=== PATIENT | female | born 1960 | race Caucasian/White ===

== ENCOUNTER → 2018-07-01 | Outpatient (CLI) | payer OTHER | LOC: M.RAD 06-24 10:10 | DX: Z12.31 Encounter for screening mammogram for malignant neoplasm of breast (principal) ==

== ENCOUNTER → 2019-06-23 | Outpatient (CLI) | payer OTHER | LOC: M.RAD 08:45 | DX: Z12.31 Encounter for screening mammogram for malignant neoplasm of breast (principal) ==

== ENCOUNTER → 2019-06-30 | Outpatient (CLI) | payer OTHER | LOC: M.ULTRA 12:55 | DX: N63.12 Unspecified lump in the right breast, upper inner quadrant (principal); N63.22 Unspecified lump in the left breast, upper inner quadrant ==

== ENCOUNTER → 2019-07-08 | Outpatient (CLI) | payer OTHER ==
--- NOTE | 2019-07-12 17:06 | PATH ---
[address] [address] PATHOLOGY RPT PROCEDURE Name: ASHVIN HOWELL Room: [facility]#: [id number] Admission: 07/08/19 Date of : 58 Discharge: Report #: [id number] Path Case #: [id number] Note [facility] Accession Number: [id number] TESTS RESULT FLAG UNITS REF RANGE LAB Clinician Provided Cytology Information No. of containers..01 Other (Miscellaneous) Source: LT BREAST ASPIRATION DIAGNOSIS: LT BREAST ASPIRATION, 1200, 5 CM FROM NIPPLE: BENIGN CYST WITH APOCRINE CHANGES. SEE COMMENT. COMMENT: REVIEWED WITH DR. CASSI STALLWORTH, WHO AGREES WITH THE DIAGNOSIS. Pathologist ICD10: 02 R89.6 Signed out by: 02 Benjamín Monge MD, Pathologist NPI- [id number] Performed by: Ashanti Desai, Survey Analyst ([facility]) Gross description: 01 2ML, RED, CLOUDY /LCS 08/17/1840 0000 Local FLAG LEGEND: L-Low Normal,H-High Normal,LL-Alert Low,HH-Alert High <-Panic Low,>-Panic High,A-Abnormal,AA-Critical Abnormal Performed at: [address] [place] [address] Oliverio De La Cruz MD, [address] [place] [address] [address] [place] [address] Benjamín Monge MD, Specimen Comment: A courtesy copy of this report has been sent to [phone], [phone] Specimen Comment: [id number] Specimen Comment: Report sent to / DR SANTANA Performed at: [address], [place], [place] [id number] MD Oliverio De La Cruz MD Phone: [phone]
== END | disposition home or self-care (01) ==
LOC: M.ULTRA 08:14
DX: N60.02 Solitary cyst of left breast (principal); N60.82 Other benign mammary dysplasias of left breast

== ENCOUNTER → 2020-05-29 | Outpatient (CLI) | payer OTHER | LOC: M.RAD 10:10 | PROVIDERS: ATTEND Family Medicine | DX: Z12.31 Encounter for screening mammogram for malignant neoplasm of breast (principal) ==

== ENCOUNTER → 2020-10-24 | Outpatient (CLI) | payer OTHER | LOC: M.LAB 08:44 | PROVIDERS: ATTEND Orthopaedic Surgery | DX: Z01.812 Encounter for preprocedural laboratory examination (principal); Z20.822 Contact with and (suspected) exposure to COVID-19 ==

== ENCOUNTER → 2021-06-06 | Outpatient (CLI) | payer OTHER | LOC: M.RAD 09:26 | PROVIDERS: ATTEND Family Medicine | DX: Z12.31 Encounter for screening mammogram for malignant neoplasm of breast (principal) ==